=== PATIENT | male | born 2000 | race Caucasian/White ===

== ENCOUNTER → 2025-02-16 14:17 | Outpatient (REF) | payer BC, SELFPAY | LOC: RAD 14:17 | PROVIDERS: ATTENDING PHYSICIAN Radiology Diagnostic Radiology | DX: S05.50XA Penetrating wound with foreign body of unspecified eyeball, initial encounter (principal) | CPT/HCPCS: 70030 ==

== ENCOUNTER → 2025-02-18 08:34 | Outpatient (REF) | payer BC, SELFPAY | LOC: MRI 3T 08:34 | PROVIDERS: ATTENDING PHYSICIAN Physician Assistant Surgical | DX: M23.92 Unspecified internal derangement of left knee (principal); M25.562 Pain in left knee | CPT/HCPCS: 73721 ==